=== PATIENT | female | born 1950 | race Caucasian/White ===

== ENCOUNTER 2016-10-31 10:48 | Emergency (ER) | payer MEDICARE ==
--- NOTE | 2016-10-31 12:25 | XRAY Report ---
EXAM: LEFT HIP AND PELVIS RADIOGRAPHY EXAM DATE: 10/31/2016 11:41 AM. HISTORY: Pain. Fall 10 days ago with increased pain over the last 4 days. COMPARISONS: None. TECHNIQUE: 1 view of the pelvis and 1 view of the hip. FINDINGS: Bones: Bony deformity related to remote healed superior and inferior pubic ramus fractures on the lef t. No acute fracture. No dislocation. No bone lesions suspicious for malignancy. Joints: The bilateral hip, pubis symphysis, and sacroiliac joints are preserved. Soft Tissues: Normal. No soft tissue swelling. IMPRESSION: 1. No acute or subacute posttraumatic change. 2. Remote healed superior and inferior pubic ramus fractures on the left. The patient pain is persist ent, and if indicated clinically, MRI could also be considered for further assessment. [facility] Referring Provider Line: [phone] SITE ID: [id number]
[2016-10-31] MEDS ORDERED: HYDROcod/ACETAM 5/325 MG TABLET PO STA (12:46)
[2016-10-31] MEDS ORDERED: predniSONE 20 MG TABLET PO STA (12:46)
[2016-10-31] MEDS ORDERED: TETANUS/DIPHTHERIA/PERTUSSIS 0.5 ML SYRINGE IM ONE ×2 (12:46→12:49)
[2016-10-31] MEDS ORDERED: predniSONE 20 MG TABLET ONE (12:49)
[2016-10-31] MEDS ORDERED: HYDROcod/ACETAM 5/325 MG TABLET ONE (12:49)
--- NOTE | 2016-10-31 12:49 | ED Physician Documentation ---
PD HPI LOWER EXT INJURY - Stated complaint Stated Complaint: LT HIP PX - Chief complaint Chief Complaint: Ext Problem - History obtained from History obtained from: Patient - History of Present Illness PD HPI LOW EXT INJURY LOCATION: Other (2 weeks ago GLF in driveway and scraped knee, was doing okay but twisted about 5 days ago and felt a pop and increasing hip pain on left since. Better with motion/walking, but worse with rest.) Review of Systems Constitutional: reports: Reviewed and negative Throat: reports: Reviewed and negative Cardiac: reports: Reviewed and negative PD PAST MEDICAL HISTORY - Past Medical History Past Medical History: Yes Cardiovascular: High cholesterol, Deep vein thrombosis GI: GERD - Past Surgical History Past Surgical History: Yes /[employer]: Tubal ligation - Present Medications Home Medications: Ambulatory Orders Medication Instructions Recorded Confirmed Esomeprazole Magnesium [Nexium] 20 mg PO DAILY 10/31/16 10/31/16 HYDROcod/ACETAM 5/325 [[place] 5/325] 1 - 2 ea PO Q6H PRN #15 tablet 10/31/16 Simvastatin 10 mg PO DAILY 10/31/16 10/31/16 predniSONE [Deltasone] 40 mg PO DAILY 4 Days 10/31/16 - Allergies Allergies/Adverse Reactions: Allergies Allergy/AdvReac Type Severity Reaction Status Date / Time Sulfa (Sulfonamide Allergy Rash Verified 10/31/16 11:11 Antibiotics) - Social History Does the pt smoke?: No Smoking Status: Never smoker Does the pt drink ETOH?: No - Immunizations Immunizations are current?: Yes PD ED PE NORMAL - Vitals Vital signs reviewed: Yes - General General: Alert and oriented X 3, No acute distress - Extremities Extremities: Other (Left hip is focally tender over the trochanteric bursa, but she has no pain with internal or external rotation and she is able to walk and bear weight without a limp or sign of pain.) - Neuro Neuro: Alert and oriented X 3, Normal speech Results - Vitals Vitals: Vital Signs - 24 hr 10/31/16 11:08 Temperature 36.8 C Heart Rate 99 Respiratory 20 Rate Blood Pressure 145/89 H O2 Saturation 98 Oxygen O2 Source Room air - Rads (name of study) L hip Radiology: EMP read contemporaneously (Old pubic fractures which the patient was aware of, no hip fracture or acute fracture.) PD MEDICAL DECISION MAKING - ED course ED course: 66-year-old woman presents with gradual onset hip pain 2 weeks after a fall, the pattern and timing and the fact that it is better with motion and worse with rest and she is able to walk and bear weight and do her normal strenuous exercises which include hiking is inconsistent with a fracture. Seems more like trochanteric bursitis. The patient and family were counseled as to the diagnosis and need for follow- up. I counseled the patient with regard to signs and symptoms that would necessitate an urgent reevaluation in the emergency department. They understand they are welcome to return at any time if worse or if not improving as expected. This document was made in part using voice recognition software. While efforts are made to proofread this documents, sound alike and grammatical errors may occur. Departure - Departure Disposition: 01 Home, Self Care Clinical Impression: Trochanteric bursitis of left hip Strain of left hip Qualifiers: Encounter type: initial encounter Qualified Code(s): S76.012A - Strain of muscle, fascia and tendon of left hip, initial encounter Condition: Good Record reviewed to determine appropriate education?: Yes Instructions: ED Strain Muscle Ext Prescriptions: predniSONE [Deltasone] 40 mg PO DAILY 4 Days HYDROcod/ACETAM 5/325 [[place] 5/325] 1 - 2 ea PO Q6H PRN #15 tablet PRN Reason: Pain Comments: Follow-up with Dr. Potts after the holiday for referral for likely physical therapy and/or orthopedics. Return if worse or if you develop fever, or if unable to walk. Your blood pressure was elevated today on check into the emergency department. This does not mean that you have hypertension, it is a common phenomenon to come to the emergency department and have elevated blood pressure. I recommend that she see her primary care physician within the week to have it rechecked when you are feeling better.
[2016-10-31 12:57] VITALS: BP 139/78
== END 2016-10-31 12:57 | disposition home or self-care (01) ==
LOC: ED 10:48
DX: M70.62 Trochanteric bursitis, left hip (principal); S76.012A Strain of muscle, fascia and tendon of left hip, initial encounter; W18.30XA Fall on same level, unspecified, initial encounter; Y92.89 Other specified places as the place of occurrence of the external cause; R03.0 Elevated blood-pressure reading, without diagnosis of hypertension; Z23 Encounter for immunization; Z86.718 Personal history of other venous thrombosis and embolism
CPT/HCPCS: 73502; 90471; 90715; 99283; A9270; J7512

== ENCOUNTER 2017-01-10 15:21 | Outpatient (CLI) | payer MEDICARE ==
[2017-01-10 16:11] LABS: BASOPHILS # (AUTO) 0.1 10^3/uL (0.0-0.1); BASOPHILS % (AUTO) 0.8 %; EOSINOPHILS # (AUTO) 0.2 10^3/uL (0.0-0.7); EOSINOPHILS % (AUTO) 2.1 %; HCT - HEMATOCRIT 37.3 % (37.0-47.0); HGB - HEMOGLOBIN 12.3 g/dL (12.0-16.0); LYMPHOCYTES # (AUTO) 2.7 10^3/uL (1.5-3.5); LYMPHOCYTES % (AUTO) 33.6 %; MEAN CORPUSCULAR HEMOGLOBIN 29.6 pg (27.0-31.0); MEAN CORPUSCULAR HGB CONC 33.1 g/dL (32.0-36.0); MEAN CORPUSCULAR VOLUME 89.4 fL (81.0-99.0); MEAN PLATELET VOLUME 8.1 fL (7.9-10.8); MONOCYTES # (AUTO) 0.6 10^3/uL (0.0-1.0); NEUTROPHILS # (AUTO) 4.5 10^3/uL (1.5-6.6); NEUTROPHILS % (AUTO) 55.5 %; NUCLEATED RED BLOOD CELLS AUTO 0.1 /100WBC; RED BLOOD COUNT 4.17 10^6/uL (4.20-5.40); RED CELL DISTRIBUTION WIDTH 13.2 % (12.0-15.0)
[2017-01-10 16:27] LABS: ALBUMIN/GLOBULIN RATIO 1.5 (1.0-2.2); BILIRUBIN,TOTAL 0.6 mg/dL (0.2-1.0); BUN - BLOOD UREA NITROGEN 12 mg/dL (6-20); CALCIUM 9.3 mg/dL (8.5-10.3); CARBON DIOXIDE - CO2 27 mmol/L (21-32); CHLORIDE 101 mmol/L (101-111); CHOL/HDL RATIO 3.2 (<4.4); CHOLESTEROL 212 mg/dL; CREATININE 0.7 mg/dL (0.4-1.0); GFR - MDRD 83 (>89); GLUCOSE 89 mg/dL (70-100); HDL CHOLESTEROL 67 mg/dL; LDL/HDL RATIO 1.9 (<4.4); SODIUM 137 mmol/L (135-145); TOTAL PROTEIN 7.5 g/dL (6.7-8.2); TRIGLYCERIDES 75 mg/dL; VLDL CHOLESTEROL 15 mg/dL
== END 2017-01-10 15:22 | disposition home or self-care (01) ==
LOC: LAB 15:21
PROVIDERS: ATTEND Family Medicine
DX: R03.0 Elevated blood-pressure reading, without diagnosis of hypertension (principal); E78.5 Hyperlipidemia, unspecified
CPT/HCPCS: 36415; 80053; 80061; 85025

== ENCOUNTER 2017-01-24 15:11 | Outpatient (CLI) | payer MEDICARE ==
--- NOTE | 2017-01-25 12:46 | Mammography Report ---
DIGITAL SCREENING MAMMOGRAM: 01/24/2017 CLINICAL INDICATION: A 66-year-old with history of late childbearing for screening. COMPARISON: 10/2015, 08/2014. TECHNIQUE: Routine CC and MLO projections were obtained of the breasts. FINDINGS: Parenchymal tissue within both breasts is heterogeneously dense, which may lower the sensi tivity of mammography; however, there are no dominant masses, suspicious microcalcifications, or seco ndary signs of malignancy. In comparison to the previous studies, there are no significant changes. ASSESSMENT: NO MAMMOGRAPHIC EVIDENCE OF MALIGNANCY. NO SIGNIFICANT INTERVAL CHANGES. RECOMMENDATION: Screening mammography is recommended annually. BI-RADS category 1 - negative. STANDARD QUALIFYING STATEMENTS 1. This examination was reviewed with the aid of Computed-Aided Detection (CAD). 2. A negative or benign imaging report should not delay biopsy if clinically suspicious findings are present. Consider surgical consultation if warranted. More than 5% of cancers are not identified by i maging. 3. Dense breasts may obscure an underlying neoplasm. JOB #: [id number] EXT JOB #:[id number]
== END 2017-01-24 15:12 | disposition home or self-care (01) ==
LOC: DI 15:11
PROVIDERS: ATTEND Family Medicine
DX: Z12.31 Encounter for screening mammogram for malignant neoplasm of breast (principal)
CPT/HCPCS: 77067

== ENCOUNTER 2017-01-24 15:42 | Outpatient (CLI) | payer MEDICARE | END 2017-01-24 15:43 | disposition home or self-care (01) | LOC: LAB 15:42 | PROVIDERS: ATTEND Family Medicine | DX: Z78.9 Other specified health status (principal) | CPT/HCPCS: 36415; 86803 ==

== ENCOUNTER 2017-03-11 07:56 | Emergency (ER) | payer MEDICARE ==
--- NOTE | 2017-03-11 08:17 | ED Physician Documentation ---
PD HPI URI - Stated complaint Stated Complaint: SORE THROAT/EAR PX - Chief complaint Chief Complaint: Resp - History obtained from History obtained from: Patient - History of Present Illness Timing - onset: How many days ago (3) Timing duration: Days (3) Timing details: Gradual onset, Still present Associated symptoms: Fever, Nasal congestion, Sore throat, Dry cough. No: Dyspnea, NVD Contributing factors: No: Sick contact, Travel, Immunocompromised, COPD / asthma Similar symptoms before: Has not had sx before Recently seen: Not recently seen Review of Systems Constitutional: reports: Fever, Chills Nose: reports: Rhinorrhea / runny nose, Congestion Throat: reports: Sore throat Cardiac: denies: Chest pain / pressure, Palpitations Respiratory: reports: Dyspnea, Cough GI: denies: Abdominal Pain, Nausea, Vomiting, Diarrhea : denies: Dysuria, Frequency PD PAST MEDICAL HISTORY - Past Medical History Cardiovascular: High cholesterol, Deep vein thrombosis GI: GERD - Past Surgical History 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 - Present Medications Home Medications: Ambulatory Orders Medication Instructions Recorded Confirmed Esomeprazole Magnesium [Nexium] 20 mg PO DAILY 10/31/16 03/11/17 Simvastatin 10 mg PO DAILY 10/31/16 03/11/17 Benzonatate [Tessalon] 100 mg PO TID PRN #25 capsule 03/11/17 Dexamethasone [Decadron] 4 mg PO DAILY #5 tablet 03/11/17 guaiFENesin/CODEINE [Robitussin AC] 10 ml PO Q6H PRN #240 ml 03/11/17 - Allergies Allergies/Adverse Reactions: Allergies Allergy/AdvReac Type Severity Reaction Status Date / Time Sulfa (Sulfonamide Allergy Rash Verified 03/11/17 08:02 Antibiotics) - Social History Does the pt smoke?: No Smoking Status: Never smoker Does the pt drink ETOH?: No - Immunizations Immunizations are current?: Yes PD ED PE NORMAL - Vitals Vital signs reviewed: Yes - General General: Alert and oriented X 3, No acute distress, Well developed/nourished - HEENT HEENT: Pharynx benign - Neck Neck: Supple, no meningeal sign, No adenopathy - Cardiac Cardiac: RRR, No murmur - Respiratory Respiratory: Clear bilaterally - Abdomen Abdomen: Soft, Non tender - Derm Derm: Normal color, Warm and dry - Extremities Extremities: No edema, No calf tenderness / cord - Neuro Neuro: Alert and oriented X 3, No motor deficit, Normal speech Results - Vitals Vitals: Vital Signs - 24 hr 03/11/17 03/11/17 07:59 09:50 Temperature 36.4 C L 36.8 C Heart Rate 111 H 95 Respiratory 16 17 Rate Blood Pressure 155/102 H 155/98 H O2 Saturation 100 96 Oxygen O2 Source Room air - Rads (name of study) chest Radiology: Prelim report reviewed (normal) PD MEDICAL DECISION MAKING - ED course Complexity details: reviewed results, re-evaluated patient, considered differential, d/w patient Departure - Departure Disposition: Home, Self Care Clinical Impression: Upper respiratory infection Qualifiers: URI type: unspecified URI Qualified Code(s): J06.9 - Acute upper respiratory infection, unspecified Condition: Stable Record reviewed to determine appropriate education?: Yes Instructions: ED Upper Resp Infec No Abx Tx Follow-Up: Tati Potts MD [Primary Care Provider] - Prescriptions: Benzonatate [Tessalon] 100 mg PO TID PRN #25 capsule PRN Reason: Cough Dexamethasone [Decadron] 4 mg PO DAILY #5 tablet guaiFENesin/CODEINE [Robitussin AC] 10 ml PO Q6H PRN #240 ml PRN Reason: Cough Comments: Drink lots of fluids. Dexamethasone steroid for inflammation for the next 5 days. Use bends and elevate as needed for cough. He could also add cough medicine. Tylenol or ibuprofen if needed for fevers or pains. Presumably this will improve over the next couple of days but there may be some persistent cough to some degree for a couple more weeks. Discharge Date/Time: 03/11/17 10:12
[2017-03-11] MEDS ORDERED: LIDOCAINE VISCOUS 2% 15 ML UDC MM STA (08:40)
[2017-03-11] MEDS ORDERED: BENZONATATE 100 MG CAPSULE PO STA (08:40)
[2017-03-11] MEDS ORDERED: DEXAMETHASONE 10 MG/ML VIAL PO STA (08:40)
[2017-03-11] MEDS ORDERED: MAG HYDROX/AL HYDROX/SIMETH 30 ML UDC PO STA (08:40)
--- NOTE | 2017-03-11 08:50 | XRAY Preliminary Report ---
Exam: XR CHEST 2 VIEW PA/LAT IMPRESSION: 1. No acute disease in the chest. [facility] SITE ID: [id number]
--- NOTE | 2017-03-11 08:52 | XRAY Report ---
EXAM: CHEST RADIOGRAPHY EXAM DATE: 03/11/2017 08:29 AM. CLINICAL HISTORY: Cough. COMPARISON: 06/18/2007. TECHNIQUE: 2 views. FINDINGS: Lungs/Pleura: Interstitium is prominent, unchanged. No consolidation. No vascular congestion. No pneu mothorax. Lung volumes are upper normal. Mediastinum: Heart size is normal. Aorta is tortuous. Other: Degenerative changes of the thoracic spine and lumbar spine. IMPRESSION: 1. No acute disease in the chest. [facility] Referring Provider Line: [phone] SITE ID: [id number]
[2017-03-11] MEDS ORDERED: DEXAMETHASONE 10 MG/ML VIAL ONE (09:23)
[2017-03-11] MEDS ORDERED: MAG HYDROX/AL HYDROX/SIMETH 30 ML UDC ONE (09:23)
[2017-03-11] MEDS ORDERED: LIDOCAINE VISCOUS 2% 15 ML UDC MM ONE (09:23)
[2017-03-11] MEDS ORDERED: BENZONATATE 100 MG CAPSULE PO ONE (09:23)
[2017-03-11 09:50] VITALS: BP 155/98
== END 2017-03-11 10:12 | disposition home or self-care (01) ==
LOC: ED 07:56
DX: J06.9 Acute upper respiratory infection, unspecified (principal); E78.00 Pure hypercholesterolemia, unspecified; Z86.718 Personal history of other venous thrombosis and embolism
CPT/HCPCS: 71020; 99283; A9270

== ENCOUNTER 2017-11-12 09:03 | Emergency (ER) | payer MEDICARE ==
--- NOTE | 2017-11-12 10:15 | ED Physician Documentation ---
PD HPI UPPER EXT INJURY - Stated complaint Stated Complaint: FINGER LAC - Chief complaint Chief Complaint: Laceration - History obtained from History obtained from: Patient - History of Present Illness Location: Left, Finger (middle) Type of injury: Laceration (from end of electric hedger.) Where injury occurred: Home Timing - onset: Today Timing - details: Abrupt onset, Still present Associated symptoms: No: Weakness, Numbness Contributing factors: No: Anticoagulated Similar symptoms before: Has not had sx before Recently seen: Not recently seen Review of Systems Skin: reports: Laceration (s) Neurologic: denies: Focal weakness, Numbness, Near syncope PD PAST MEDICAL HISTORY - Past Medical History Cardiovascular: High cholesterol, Deep vein thrombosis GI: GERD - Past Surgical History 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 - Present Medications Home Medications: Ambulatory Orders Medication Instructions Recorded Confirmed Simvastatin 10 mg PO DAILY 10/31/16 11/12/17 - Allergies Allergies/Adverse Reactions: Allergies Allergy/AdvReac Type Severity Reaction Status Date / Time Sulfa (Sulfonamide Allergy Rash Verified 03/11/17 08:02 Antibiotics) - Social History Does the pt smoke?: No Smoking Status: Never smoker Does the pt drink ETOH?: No - Immunizations Immunizations are current?: Yes PD ED PE NORMAL - Vitals Vital signs reviewed: Yes - General General: Alert and oriented X 3, No acute distress, Well developed/nourished - Derm Derm: Normal color, Warm and dry - Extremities Extremities: Other (left middle finger tip, not at nailbed, without FB has laceration. Edges are close and can be held together easily.) - Neuro Neuro: Alert and oriented X 3, No motor deficit, No sensory deficit Results - Vitals Vitals: Oxygen O2 Source Room air Procedures - Laceration (location) left middle finger tip Length in cm: 1 Wound type: Flap Anesthesia: No: LET, Lidocaine 2% Wound Preparation: To the base. No: FB identified Skin layer closure: Dermabond, Steri strips Other: Patient tolerated well, No complications, Dressing applied PD MEDICAL DECISION MAKING - ED course Complexity details: considered differential (can be held closed with glue/ tapes. Does not need sutures. Shared decision with patient. ), d/w patient - Sepsis Event Vital Signs: Oxygen O2 Source Room air Departure - Departure Disposition: 01 Home, Self Care Clinical Impression: Finger laceration Qualifiers: Encounter type: initial encounter Finger: middle finger Damage to nail status: without damage Foreign body presence: without foreign body Laterality: left Qualified Code(s): S61.213A - Laceration without foreign body of left middle finger without damage to nail, initial encounter Condition: Stable Record reviewed to determine appropriate education?: Yes Instructions: ED Laceration Hand Follow-Up: Tati Potts MD [Primary Care Provider] - Comments: Keep the area clean and dry. Allow the Steri-Strips to fall off on their own after several days or more. Tylenol or ibuprofen if needed for pains. This should heal up okay without needing sutures. Recheck if signs of infection. Discharge Date/Time: 11/12/17 10:57
[2017-11-12 10:57] VITALS: BP 168/96
== END 2017-11-12 10:57 | disposition home or self-care (01) ==
LOC: ED 09:03
DX: S61.213A Laceration without foreign body of left middle finger without damage to nail, initial encounter (principal); W31.89XA Contact with other specified machinery, initial encounter; Y93.H2 Activity, gardening and landscaping
CPT/HCPCS: 12001; 99282; 99283

== ENCOUNTER 2017-11-30 17:16 | Emergency (ER) | payer MEDICARE ==
[2017-11-30] MEDS ORDERED: KETOROLAC 60 MG/2 ML VIAL IVP STA (17:59)
--- NOTE | 2017-11-30 17:59 | ED Physician Documentation ---
PD HPI ABD PAIN - Stated complaint Stated Complaint: BACK PX - Chief complaint Chief Complaint: Back Pain - History obtained from History obtained from: Patient - History of Present Illness Timing - onset: Other (For the last 6 days she has had waxing and waning right flank pain radiating to the right lower quadrant not associated with fevers, chills, shortness of breath, or urinary complaints. She was seen in the office and had what she reports to be a normal urinalysis. She been taking baclofen without relief. The pain is worse, much worse at night and does not seem to be associated with eating or motion. 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 - Present Medications Home Medications: Ambulatory Orders Medication Instructions Recorded Confirmed Simvastatin 10 mg PO DAILY 10/31/16 11/12/17 HYDROcod/ACETAM 5/325 [[place] 5/325] 1 - 2 ea PO Q6H PRN #15 tablet 11/30/17 - Allergies Allergies/Adverse Reactions: Allergies Allergy/AdvReac Type Severity Reaction Status Date / Time Sulfa (Sulfonamide Allergy Rash Verified 03/11/17 08:02 Antibiotics) - Social History Does the pt smoke?: No Smoking Status: Never smoker Does the pt drink ETOH?: No - Family History Family history: reports: Non contributory - Immunizations Immunizations are current?: Yes PD ED PE NORMAL - Vitals Vital signs reviewed: Yes - General General: Alert and oriented X 3, No acute distress - HEENT HEENT: PERRL, EOMI - Neck Neck: Supple, no meningeal sign, No bony TTP - Cardiac Cardiac: RRR, No murmur - Respiratory Respiratory: No respiratory distress, Clear bilaterally - Abdomen Abdomen: Normal bowel sounds, Soft, Non tender - Back Back: No CVA TTP - Derm Derm: No rash (no shingles rash) - Extremities Extremities: No edema, No calf tenderness / cord - Neuro Neuro: Alert and oriented X 3, Normal speech Results - Vitals Vitals: Vital Signs - 24 hr 11/30/17 17:37 Temperature 36.9 C Heart Rate 87 Respiratory 18 Rate Blood Pressure 142/83 H O2 Saturation 98 Oxygen O2 Source Room air - Labs Labs: Laboratory Tests 11/30/17 11/30/17 11/30/17 18:00 18:00 18:05 WBC 7.3 RBC 4.04 L Hgb 12.1 Hct 36.1 L MCV 89.3 MCH 29.9 MCHC 33.5 RDW 13.7 Plt Count 281 MPV 8.0 Neut # (Auto) 4.0 Lymph # (Auto) 2.5 [place] # (Auto) 0.6 Eos # (Auto) 0.2 Baso # (Auto) 0.1 Absolute Nucleated RBC 0.00 Nucleated RBC % 0.0 Sodium 136 Potassium 3.7 Chloride 102 Carbon Dioxide 26 Anion Gap 8.0 BUN 17 Creatinine 0.6 Estimated GFR (MDRD) 99 Glucose 107 H Calcium 9.3 Total Bilirubin 0.9 AST 19 ALT 17 Alkaline Phosphatase 83 Total Protein 7.6 Albumin 4.1 Globulin 3.5 Albumin/Globulin Ratio 1.2 Lipase 30 Urine Color YELLOW Urine Clarity CLEAR Urine pH 6.0 Ur Specific [place] 1.025 Urine Protein NEGATIVE Urine Glucose (UA) NEGATIVE Urine Ketones NEGATIVE Urine Occult Blood NEGATIVE Urine Nitrite NEGATIVE Urine Bilirubin NEGATIVE Urine Urobilinogen 0.2 (NORMAL) Ur Leukocyte Esterase NEGATIVE Ur Microscopic Review NOT INDICATED Urine Culture Comments NOT INDICATED - Rads (name of study) CTA Chest and CT A/P Radiology: EMP read contemporaneously (Bibasilar air trapping and cholelithiasis without other acute disease and no evidence of cholecystitis.) PD MEDICAL DECISION MAKING - ED course ED course: 67-year-old woman presents with right flank pain for a week, does not seem motion related and not related to eating. Urinalysis is negative. CT results as shown, could be referred pain from gallstones but there is no evidence of cholecystitis at this juncture. She will be referred to a surgeon for further evaluation and treatment, I discussed with her that they may want to do a HIDA scan prior to a cholecystectomy. - Sepsis Event Vital Signs: Vital Signs - 24 hr 11/30/17 17:37 Temperature 36.9 C Heart Rate 87 Respiratory 18 Rate Blood Pressure 142/83 H O2 Saturation 98 Oxygen O2 Source Room air Departure - Departure Disposition: 01 Home, Self Care Clinical Impression: Right flank pain Cholelithiasis Qualifiers: Cholelithiasis location: gallbladder Cholecystitis presence: without cholecystitis Biliary obstruction: without biliary obstruction Qualified Code(s) : K80.20 - Calculus of gallbladder without cholecystitis without obstruction Condition: Good Record reviewed to determine appropriate education?: Yes Instructions: ED Abdominal Pain Unkn Cause, Gallstones Tx Follow-Up: Serge Greene MD [Provider Admit Priv/Credential] - Prescriptions: HYDROcod/ACETAM 5/325 [[place] 5/325] 1 - 2 ea PO Q6H PRN #15 tablet PRN Reason: Pain Comments: Your blood pressure was elevated today on check into the emergency department. This does not mean that you have hypertension, it is a common phenomenon to come to the emergency department and have elevated blood pressure. I recommend that you see your primary care physician within the week to have it rechecked when you are feeling better. Do not drink or drive while taking narcotic pain medication. Note that many narcotic pain relievers also contain Tylenol/acetaminophen. Please ensure that your total dose of acetaminophen from all sources does not exceed 3 g (3000 mg) per day. You may get constipated while on this medication. Take a stool softener such as Colace twice a day while you are on it. Also add an [id number] laxative such as senna or MiraLAX on any day that you do not have a bowel movement. If you received a narcotic pain medication or sedative while in the emergency department, do not drive for the next 24 hours.
[2017-11-30 18:10] LABS: BASOPHILS # (AUTO) 0.1 10^3/uL (0.0-0.1); BASOPHILS % (AUTO) 1.2 %; EOSINOPHILS # (AUTO) 0.2 10^3/uL (0.0-0.7); EOSINOPHILS % (AUTO) 2.1 %; HGB - HEMOGLOBIN 12.1 g/dL (12.0-16.0); LYMPHOCYTES # (AUTO) 2.5 10^3/uL (1.5-3.5); LYMPHOCYTES % (AUTO) 34.7 %; MEAN CORPUSCULAR HEMOGLOBIN 29.9 pg (27.0-31.0); MEAN CORPUSCULAR HGB CONC 33.5 g/dL (32.0-36.0); MEAN CORPUSCULAR VOLUME 89.3 fL (81.0-99.0); MONOCYTES # (AUTO) 0.6 10^3/uL (0.0-1.0); MONOCYTES % (AUTO) 7.7 %; NEUTROPHILS % (AUTO) 54.3 %; PLT - PLATELET COUNT 281 10^3/uL (130-450); RED BLOOD COUNT 4.04 10^6/uL (4.20-5.40); RED CELL DISTRIBUTION WIDTH 13.7 % (12.0-15.0); WHITE BLOOD COUNT 7.3 x10^3/uL (4.8-10.8)
[2017-11-30 18:25] LABS: ALBUMIN 4.1 g/dL (3.2-5.5); ALBUMIN/GLOBULIN RATIO 1.2 (1.0-2.2); BILIRUBIN,TOTAL 0.9 mg/dL (0.2-1.0); CALCIUM 9.3 mg/dL (8.5-10.3); CREATININE 0.6 mg/dL (0.4-1.0); TOTAL PROTEIN 7.6 g/dL (6.7-8.2)
[2017-11-30] MEDS ORDERED: IOPAMIDOL-300 100 ML VIAL ONE (18:27)
[2017-11-30 18:30] LABS: BILIRUBIN,URINE NEGATIVE (NEGATIVE); GLUCOSE, URINE (UA) NEGATIVE (NEGATIVE); KETONES,URINE (UA) NEGATIVE (NEGATIVE); LEUKOCYTE ESTERASE, URINE NEGATIVE (NEGATIVE); NITRITE,URINE NEGATIVE (NEGATIVE); OCCULT BLOOD,URINE NEGATIVE (NEGATIVE); PROTEIN,URINE NEGATIVE (NEGATIVE); UROBILINOGEN,URINE 0.2 (NORMAL) E.U./dL (NORMAL)
[2017-11-30 18:41] LABS: CLARITY,URINE CLEAR (CLEAR)
[2017-11-30] MEDS ORDERED: IOPAMIDOL-300 100 ML VIAL IVP ONE (19:04)
--- NOTE | 2017-11-30 19:20 | CT Report ---
Procedure Date: 11/30/2017 Accession Number: [id number] / [id number] Procedure: CT - Abdomen/Pelvis W/ CPT Code: FULL RESULT: EXAM: CT ABDOMEN AND PELVIS EXAM DATE: 11/30/2017 06:42 PM. CLINICAL HISTORY: R flank pain. COMPARISONS: None. TECHNIQUE: Routine helical CT imaging was performed through the abdomen and pelvis. IV contrast: 100 ML ISOVUE 300. Enteric contrast: No. Reconstructions: Coronal and sagittal. In accordance with CT protocol optimization, one or more of the following dose reduction techniques were utilized for this exam: automated exposure control, adjustment of mA and/or KV based on patient size, or use of iterative reconstructive technique. FINDINGS: Lung Bases: Unremarkable. Liver: Normal. No masses. Gallbladder/Bile Ducts: There is a calcified gallstone in the fundus of the gallbladder. Spleen: Normal. Pancreas: Normal. Adrenal Glands: Normal. Kidneys: Normal. No masses or hydronephrosis. Peritoneal Cavity/Bowel: Normal. No free fluid, free air or adenopathy. No masses or acute inflammatory process. Pelvic Organs: Urinary bladder is empty. Uterus is anteverted. Ovaries are normal in size. Vasculature: No aneurysms or other significant abnormality. Bones: No significant abnormality. Other: None. IMPRESSION: 1. No localizing inflammatory process. 2. Cholelithiasis without other CT findings of acute cholecystitis. 3. No other CT findings to explain right flank pain. [facility]
--- NOTE | 2017-11-30 19:28 | CT Report ---
Procedure Date: 11/30/2017 Accession Number: [id number] / [id number] Procedure: CT - Chest Angio (PE) CPT Code: FULL RESULT: EXAM: CT ANGIOGRAM CHEST EXAM DATE: 11/30/2017 06:42 PM. CLINICAL HISTORY: R flank pain, H /o DVT. COMPARISON: None. TECHNIQUE: Routine helical imaging was performed through the chest in the pulmonary arterial phase. IV Contrast: 100 ML ISOVUE 300. Reconstructions: Coronal 3-D MIP reconstructions.Sagittal and coronal. In accordance with CT protocol optimization, one or more of the following dose reduction techniques were utilized for this exam: automated exposure control, adjustment of mA and/or KV based on patient size, or use of iterative reconstructive technique. FINDINGS: Pulmonary Arteries: Diagnostic quality: Adequate through the segmental arteries. No evidence for acute or chronic pulmonary emboli. RV/LV is within normal limits. There is no interventricular septal bowing. There is no reflux of contrast material in the IVC. Lungs/Pleura: No consolidative process or nodule. There is mild basilar lobular air trapping. Mediastinum: The heart size is normal. No pericardial effusion. Thoracic Aorta: There is very mild calcification. No aneurysm or dissection. Upper Abdomen: There is a gallstone in the fundus of the gallbladder. Other: None. IMPRESSION: 1. Negative for acute pulmonary embolism. 2. No evidence of pneumonia. Mild basilar air trapping. This degree of air trapping can be seen in normal subjects, but can be associated with other reactive airways disease or asthma. [facility]
[2017-11-30 19:48] VITALS: BP 171/97
== END 2017-11-30 19:47 | disposition home or self-care (01) ==
LOC: ED 17:16
DX: K80.20 Calculus of gallbladder without cholecystitis without obstruction (principal); R03.0 Elevated blood-pressure reading, without diagnosis of hypertension
CPT/HCPCS: 36415; 71275; 74177; 80053; 81003; 83690; 85025; 96374; 99283; Q9967; 81001; 87086

== ENCOUNTER 2018-10-03 08:00 | Outpatient (CLI) | payer MEDICARE ==
[2018-10-03 15:41] LABS: BASOPHILS # (AUTO) 0.1 10^3/uL (0.0-0.1); BASOPHILS % (AUTO) 0.6 %; EOSINOPHILS # (AUTO) 0.1 10^3/uL (0.0-0.7); EOSINOPHILS % (AUTO) 0.6 %; HGB - HEMOGLOBIN 10.9 g/dL (12.0-16.0); LYMPHOCYTES # (AUTO) 2.2 10^3/uL (1.5-3.5); LYMPHOCYTES % (AUTO) 21.4 %; MEAN CORPUSCULAR HEMOGLOBIN 29.3 pg (27.0-31.0); MEAN CORPUSCULAR HGB CONC 33.6 g/dL (32.0-36.0); MEAN CORPUSCULAR VOLUME 87.3 fL (81.0-99.0); MONOCYTES % (AUTO) 10.2 %; NEUTROPHILS # (AUTO) 6.8 10^3/uL (1.5-6.6); NEUTROPHILS % (AUTO) 67.2 %; PLT - PLATELET COUNT 271 10^3/uL (130-450); RED BLOOD COUNT 3.74 10^6/uL (4.20-5.40); RED CELL DISTRIBUTION WIDTH 13.1 % (12.0-15.0); WHITE BLOOD COUNT 10.1 x10^3/uL (4.8-10.8)
[2018-10-03 15:59] LABS: ALBUMIN/GLOBULIN RATIO 1.1 (1.0-2.2); ALKALINE PHOSPHATASE 81 IU/L (42-121); ALT ALANINE AMINOTRANSFERASE 18 IU/L (10-60); AST ASPARTATE AMINOTRANSFERASE 20 IU/L (10-42); BUN - BLOOD UREA NITROGEN 14 mg/dL (6-20); CALCIUM 9.3 mg/dL (8.5-10.3); CARBON DIOXIDE - CO2 25 mmol/L (21-32); CHLORIDE 100 mmol/L (101-111); CHOL/HDL RATIO 2.7 (<4.4); CHOLESTEROL 173 mg/dL; CREATININE 0.7 mg/dL (0.4-1.0); GFR - MDRD 83 (>89); GLUCOSE 117 mg/dL (70-100); HDL CHOLESTEROL 65 mg/dL; SODIUM 139 mmol/L (135-145); TOTAL PROTEIN 7.7 g/dL (6.7-8.2)
== END 2018-10-03 23:59 | disposition home or self-care (01) ==
LOC: LAB 08:00
PROVIDERS: ATTEND Physician Assistant
DX: E78.5 Hyperlipidemia, unspecified (principal); R03.0 Elevated blood-pressure reading, without diagnosis of hypertension
CPT/HCPCS: 36415; 80053; 80061; 83721; 85025

== ENCOUNTER 2018-10-27 17:19 | Outpatient (CLI) | payer MEDICARE ==
--- NOTE | 2018-10-30 12:27 | Ultrasound Report ---
Reason: ACHILLES TENDONITIS,RIGHT Procedure Date: 10/27/2018 Accession Number: [id number] / [id number] Procedure: US - Ext Limited Non Vascular CPT Code: FULL RESULT: EXAM: RIGHT LOWER EXTREMITY ULTRASOUND - LIMITED EXAM DATE: 10/27/2018 06:15 PM. CLINICAL HISTORY: ACHILLES Tendonitis, right. Painful right ankle COMPARISON: None. TECHNIQUE: Real-time scanning was performed of the right Achilles tendon with the left Achilles tendon for comparison with static images obtained. FINDINGS: The distal right Achilles tendon is thickened, measuring 1.1 cm on the right compared to 2.7 cm on the left. The right Achilles tendon is also hypervascular, is slightly heterogeneous in echotexture, and is more rounded in configuration than the left . The findings are those which can be seen with Achilles tendinitis. No definite fluid collection is seen. IMPRESSION: Findings consistent with Achilles tendinitis right ankle. If symptoms persist consider MRI. [facility]
== END 2018-10-27 17:20 | disposition home or self-care (01) ==
LOC: DI 17:19
PROVIDERS: ATTEND Physician Assistant
DX: M76.61 Achilles tendinitis, right leg (principal)
CPT/HCPCS: 76882

== ENCOUNTER 2019-04-13 16:19 | Outpatient (CLI) | payer MEDICARE ==
--- NOTE | 2019-04-16 12:28 | Mammography Report ---
Reason: ROUTINE MAMMO Procedure Date: 04/13/2019 Accession Number: [id number] / [id number] Procedure: JARETT - Screening Mammo w/Cresencio CPT Code: Final Report FULL RESULT: EXAM: Screening Mammo w/Cresencio DATE: 04/13/2019 4:43 PM CLINICAL HISTORY: Routine screening TECHNIQUE: (B) - Bilateral CC and MLO views were obtained. COMPARISON: 01/24/2017, 10/08/2015, 09/03/2014 PARENCHYMAL PATTERN: (D) - The breasts demonstrate heterogeneously dense fibroglandular parenchyma bilaterally. FINDINGS: No significant interval change. There are no suspicious masses, calcifications, or areas of distortion. IMPRESSION: Negative examination. BI-RADS category 1. RECOMMENDATION: (ANNUAL) - Recommend routine annual screening mammography. BI-RADS CATEGORY: (1) - Negative. STANDARD QUALIFYING STATEMENTS: 1. This examination was not reviewed with the aid of Computer-Aided Detection (CAD). 2. A negative or benign imaging report should not preclude biopsy if clinically suspicious findings are present. 3. Dense breasts may obscure an underlying neoplasm. 4. This examination was reviewed with the aid of 3D breast imaging (tomosynthesis).
== END 2019-04-13 16:20 | disposition home or self-care (01) ==
LOC: DI 16:19
DX: Z12.31 Encounter for screening mammogram for malignant neoplasm of breast (principal)
CPT/HCPCS: 77063; 77067

== ENCOUNTER 2019-12-03 14:15 | Outpatient (CLI) | payer MEDICARE ==
--- NOTE | 2019-12-03 15:38 | XRAY Report ---
Reason: RIGHT ELBOW PAIN Procedure Date: 12/03/2019 Accession Number: [id number] / [id number] Procedure: [facility] - Elbow 3 View RT CPT Code: Final Report FULL RESULT: PROCEDURE: Elbow 3 View RT INDICATIONS: RIGHT ELBOW PAIN TECHNIQUE: 3 views of the elbow were acquired. COMPARISON: None FINDINGS: Bones: No fractures or dislocations. No suspicious bony lesions. Mild periarticular osteophyte formation. Soft tissues: No elbow joint effusion. No suspicious soft tissue calcifications. IMPRESSION: Osteoarthritis. No acute fracture. No osseous lesion. If symptoms and/or clinical suspicion for pathology continue, further assessment with repeat plain films, or advanced imaging (e.g., CT, MRI, or bone scan) is recommended for further assessment. Reviewed by: Mara Hooks MD on 12/03/2019 3:36 PM PDT Approved by: Mara Hooks MD on 12/03/2019 3:36 PM PDT Station ID: [id number]
== END 2019-12-03 23:59 | disposition home or self-care (01) ==
LOC: DI.WCP 14:15
PROVIDERS: ATTEND Physician Assistant
DX: M19.021 Primary osteoarthritis, right elbow (principal)

== ENCOUNTER 2020-12-10 16:01 | Outpatient (CLI) | payer MEDICARE ==
[2020-12-10 16:18] LABS: BASOPHILS # (AUTO) 0.1 10^3/uL (0.0-0.1); BASOPHILS % (AUTO) 0.7 %; EOSINOPHILS # (AUTO) 0.3 10^3/uL (0.0-0.7); EOSINOPHILS % (AUTO) 2.9 %; HCT - HEMATOCRIT 33.6 % (37.0-47.0); HGB - HEMOGLOBIN 10.9 g/dL (12.0-16.0); LYMPHOCYTES # (AUTO) 2.6 10^3/uL (1.5-3.5); LYMPHOCYTES % (AUTO) 29.9 %; MEAN CORPUSCULAR HEMOGLOBIN 28.5 pg (27.0-31.0); MEAN CORPUSCULAR HGB CONC 32.4 g/dL (32.0-36.0); MEAN CORPUSCULAR VOLUME 87.7 fL (81.0-99.0); MEAN PLATELET VOLUME 9.7 fL (7.9-10.8); MONOCYTES # (AUTO) 0.7 10^3/uL (0.0-1.0); MONOCYTES % (AUTO) 8.4 %; NEUTROPHILS # (AUTO) 5.1 10^3/uL (1.5-6.6); NEUTROPHILS % (AUTO) 57.8 %; PLT - PLATELET COUNT 287 10^3/uL (130-450); RED BLOOD COUNT 3.83 10^6/uL (4.20-5.40); RED CELL DISTRIBUTION WIDTH 14.3 % (12.0-15.0); WHITE BLOOD COUNT 8.7 x10^3/uL (4.8-10.8)
[2020-12-10 16:44] LABS: THYROID STIMULATING HORMONE 1.79 uIU/mL (0.34-5.60)
[2020-12-10 16:48] LABS: ALBUMIN 4.3 g/dL (3.2-5.5); ALBUMIN/GLOBULIN RATIO 1.4 (1.0-2.2); ALKALINE PHOSPHATASE 89 IU/L (42-121); ALT ALANINE AMINOTRANSFERASE 20 IU/L (10-60); AST ASPARTATE AMINOTRANSFERASE 20 IU/L (10-42); BILIRUBIN,TOTAL 0.5 mg/dL (0.2-1.0); BUN - BLOOD UREA NITROGEN 24 mg/dL (6-20); CALCIUM 9.2 mg/dL (8.5-10.3); CARBON DIOXIDE - CO2 25 mmol/L (21-32); CHLORIDE 102 mmol/L (101-111); CHOL/HDL RATIO 3.3 (<4.4); CHOLESTEROL 218 mg/dL; CREATININE 0.8 mg/dL (0.4-1.0); GFR - MDRD 71 (>89); GLUCOSE 102 mg/dL (70-100); HDL CHOLESTEROL 66 mg/dL; LDL CHOLESTEROL,CALCULATED 134 mg/dL; POTASSIUM 4.1 mmol/L (3.5-5.0); SODIUM 135 mmol/L (135-145); TOTAL PROTEIN 7.4 g/dL (6.7-8.2); TRIGLYCERIDES 92 mg/dL; VLDL CHOLESTEROL 18 mg/dL
== END 2020-12-10 16:02 | disposition home or self-care (01) ==
LOC: LAB 16:01
PROVIDERS: ATTEND Family Medicine
DX: R03.0 Elevated blood-pressure reading, without diagnosis of hypertension (principal); E78.5 Hyperlipidemia, unspecified
CPT/HCPCS: 36415; 80053; 80061; 83721; 84443; 85025

== ENCOUNTER 2020-12-17 15:30 | Outpatient (CLI) | payer MEDICARE ==
[2020-12-17 18:00] LABS: FECAL OCCULT BLOOD (FIT) POSITIVE (NEGATIVE)
== END 2020-12-17 23:59 | disposition home or self-care (01) ==
LOC: LAB.N 15:30
PROVIDERS: ATTEND Family Medicine
DX: D64.9 Anemia, unspecified (principal)
CPT/HCPCS: 82274

== ENCOUNTER 2021-08-25 11:22 | Day surgery (SDC) | payer MEDICARE ==
[2021-08-25] MEDS ORDERED: LACTATED RINGERS 1,000 ML IV ONE (11:29)
--- NOTE | 2021-08-25 11:52 | ANESTHESIA ---
Pre-Anesthesia VS, & Labs - Diagnosis acute blood loss anemia, gerd - Procedure EGD, cscope Vital Signs: Temp Pulse Resp BP Pulse Ox 36.4 C L 100 16 145/75 H 100 08/25/21 11:33 08/25/21 11:33 08/25/21 11:33 08/25/21 11:33 08/25/21 11:33 Height: 5 ft Weight (kg): 58 kg Body Mass Index: 25.0 BMI Classification: Overweight - NPO >8 hours Last Fluid Intake: am prep - Is Patient ?: No - Lab Results Lab results reviewed: Yes Home Medications and Allergies Home Medications: Ambulatory Orders Esomeprazole Magnesium [Nexium 24Hr] 20 mg PO DAILY 04/14/21 Losartan [Cozaar] 50 mg PO QPM 04/14/21 Multivitamin 1 each PO DAILY 04/14/21 Pediatric Multivitamin No.127 [Emergen-C Kidz] 1 each PO DAILY 04/14/21 Simvastatin 10 mg PO QPM 10/31/16 Esomeprazole Magnesium [Nexium 24Hr] 20 mg PO DAILY 04/14/21 Losartan [Cozaar] 50 mg PO QPM 04/14/21 Multivitamin 1 each PO DAILY 04/14/21 Pediatric Multivitamin No.127 [Emergen-C Kidz] 1 each PO DAILY 04/14/21 Allergies/Adverse Reactions: Allergies Allergy/AdvReac Type Severity Reaction Status Date / Time Sulfa (Sulfonamide Allergy Hives Verified 04/14/21 14:56 Antibiotics) Anes History & Medical History - Anesthetic History Anesthesia Complications: reports: No previous complications Family history of Anesthesia Complications: Denies Family history of Malignant Hyperthermia: Denies - Medical History Cardiovascular: reports: High cholesterol, Pulmonary embolism Pulmonary: reports: None Gastrointestinal: reports: GERD Urinary: reports: None Musculoskeletal: reports: Osteoarthritis Endocrine/Autoimmune: reports: None Skin: reports: Other Smoking Status: Never smoker - Surgical History Gynecologic: reports: Tubal ligation Exam General: Alert, Oriented x3, Cooperative Dental: WNL Mouth Openin Fingerbreadth Neck Mobility: Normal Mallampati classification: II Thyromental Distance: 4-6 cm Respiratory: Lungs clear, Normal breath sounds, No respiratory distress Cardiovascular: Regular rate (occasional PAC on tele, tachy at 100 on admit) Neurological: Normal speech Mental/Cognitive Status: Alert/Oriented X3, Normal for patient Cognitive Status: Within normal limits Plan Anesthesia Type: Total IV Consent for Procedure(s) Verified and Reviewed: Yes Code Status: Attempt Resuscitation ASA classification: 2-Mild systemic disease Is this case an emergency?: No
[2021-08-25] MEDS ORDERED: ONDANSETRON 4 MG/2 ML VIAL ONE (12:31)
[2021-08-25] MEDS ORDERED: PROPOFOL 500 MG/50 ML 500 MG/50 ML VIAL ONE (12:49)
[2021-08-25] MEDS ORDERED: MIDAZOLAM 2 MG/2 ML VIAL ONE (12:51)
[2021-08-25] MEDS ORDERED: LACTATED RINGERS 300 ML IV ONE (13:50)
[2021-08-25 14:33] VITALS: BP 114/66
--- NOTE | 2021-08-25 16:24 | ANESTHESIA POST OP EVALUATION ---
Anesthesia Post Eval - Post Anesthesia Eval Vitals: Last Vital Signs Temp 36.4 C L 08/25/21 14:25 Pulse 80 08/25/21 14:25 Resp 16 08/25/21 14:25 BP 114/66 08/25/21 14:25 Pulse Ox 99 08/25/21 14:25 CV Function Including HR & BP: Stable Pain Control: Satisfactory Nausea & Vomiting: Negative Mental Status: Baseline Respiratory Status: Airway Patent Hydration Status: Satisfactory Anesthesia Complications: None
== END 2021-08-25 11:23 | disposition home or self-care (01) ==
LOC: SDS 11:22
PROVIDERS: ATTEND Surgery
PROC: 0DB38ZZ Excision of Lower Esophagus, Via Natural or Artificial Opening Endoscopic (ICD-10-PCS; 2021-08-25)
PROC: 0DB98ZZ Excision of Duodenum, Via Natural or Artificial Opening Endoscopic (ICD-10-PCS; principal; 2021-08-25 13:00)
PROC: 0DB68ZZ Excision of Stomach, Via Natural or Artificial Opening Endoscopic (ICD-10-PCS; 2021-08-25 13:00)
DX: D50.9 Iron deficiency anemia, unspecified (principal); K21.9 Gastro-esophageal reflux disease without esophagitis; K44.9 Diaphragmatic hernia without obstruction or gangrene; K57.30 Diverticulosis of large intestine without perforation or abscess without bleeding; K64.4 Residual hemorrhoidal skin tags; K64.8 Other hemorrhoids; R19.5 Other fecal abnormalities
CPT/HCPCS: 43239; 45378; J7120